=== PATIENT | female | born 1975 | race Caucasian/White ===

== ENCOUNTER → 2020-06-12 13:27 | Outpatient (CLI) | payer OTHER, SELFPAY ==
[2020-05-15 08:14] VITALS: BMI 65.2
--- NOTE | 2020-06-12 13:27 | BI_ITS ---
MAMMOGRAPHY - BILATERAL DIAGNOSTIC REASON FOR EXAM: Female, 44 years old. Left breast lump following injury.. PERTINENT HISTORY: Grandmother with breast cancer. TECHNIQUE: Digital bilateral breast danica (3D mammographic acquisition) in the CC and MLO projections. 2-D mediolateral oblique (MLO) and craniocaudad (CC) views of both breasts were obtained. CAD: Full Field Digital Mammography with Computer Added Detection was performed. COMPARISON: None. Baseline examination. FINDINGS: Breast Composition: There are scattered areas of fibroglandular density. There are no dominant masses or suspicious calcifications. No other significant abnormalities are identified. BI/DIAG MAMM W/CAD, BILAT IMPRESSION: Negative diagnostic mammogram. With the patient''s history of a palpable lump in the left breast, correlation with ultrasound is recommended. ASSESSMENT CATEGORY: BIRADS Category 0: Incomplete. Need additional imaging evaluation. A letter regarding these results will be sent to the patient by the facility within 30 days. Approximately 10% of breast cancers are not detected by mammography. A normal mammogram should not delay biopsy of a clinically suspicious abnormality. Electronically Signed: Matt Rashid, at 14:50 EDT , Service support ,
--- NOTE | 2020-06-12 13:27 | US_ITS ---
STUDY: ULTRASOUND BREAST - LEFT REASON FOR EXAM: Female, 44 years old. Palpable lump left breast following injury. TECHNIQUE: Axial and longitudinal images of the LEFT breast were performed with a high resolution ultrasound transducer. # OF IMAGES: 37 COMPARISON: Comparison is made with prior mammogram done earlier in the day. FINDINGS: LEFT Breast: The palpable abnormality corresponds to a 1.8 cm x 1.6 cm x 0.4 cm echogenic nodule with a central decreased attenuation at the 12 o''clock position the breast at 6 cm from the nipple. This may represent a resolving hematoma. Follow-up sonogram in 4 months is recommended. There is also evidence of a 6 mm x 7 mm x 3 mm cyst at the 11 o''clock position of the breast at 6 cm from the nipple. US/Breast Limited Unilateral IMPRESSION: The palpable abnormality corresponds to a 1.87 x 1.6 cm x 0.4 cm heterogeneous area of echotexture with hypoechoic and echogenic densities as described. This may represent a resolving hematoma. A follow-up sonogram in 4 months is recommended. 6 mm x 7 mm x 3 mm cyst at the 11 o''clock position of the breast is 6 cm from the nipple. ASSESSMENT CATEGORY: BIRADS Category 3: Probably Benign - Short-Interval Follow-up Suggested. A letter regarding these results will be sent to the patient by the facility within 30 days. Electronically Signed: Matt Rashid, at 10:51 EDT , Service support ,
== END ==
PROVIDERS: PCP Nurse Practitioner Family; Referring Provider Obstetrics & Gynecology; Visit Provider Obstetrics & Gynecology
DX: N63.20 Unspecified lump in the left breast, unspecified quadrant (principal)
CPT/HCPCS: 76642; 77066